=== PATIENT | male | born 1990 | race African-American/Black ===

== ENCOUNTER 2017-02-17 11:58 | Emergency (ER) | payer SELFPAY ==
[~2017-02-17] VITALS: Ht 190.5 cm; Wt 75.6 kg
[~2017-02-17 11:58] MED LIST: AMOXICILLIN500 M1 PO; LOMOTIL TABLET1 EACH PO; MOTRIN800 MG PO; PROMETHAZINE HC25 M1 PO; VIBRAMYCIN100 MG PO
[2017-02-17] MEDS ORDERED: POLYTRIM EYE DR10 ML LEFT EYE (13:26)
[2017-02-17] MEDS ORDERED: NAPHCON-A EYE D15 ML BOTH EYES (13:26)
[2017-02-17 13:35] VITALS: BP 122/84
== END 2017-02-17 13:36 | disposition home or self-care (01) ==
LOC: EME 11:58
DX: H10.9 Unspecified conjunctivitis (principal)
CPT/HCPCS: 99281; 99283